=== PATIENT | male | born 1985 | race Two or more races ===

== ENCOUNTER 2021-06-11 09:56 | Outpatient (CLI) | payer OTHER | END 2021-06-11 10:06 | disposition home or self-care (01) | LOC: LAB 09:56 | DX: I11.9 Hypertensive heart disease without heart failure (principal); E78.3 Hyperchylomicronemia; E53.9 Vitamin B deficiency, unspecified; Z13.1 Encounter for screening for diabetes mellitus ==

== ENCOUNTER 2021-08-05 07:33 | Outpatient (CLI) | payer OTHER | END 2021-08-05 07:42 | disposition home or self-care (01) | LOC: LAB 07:33 | DX: A56.01 Chlamydial cystitis and urethritis (principal); Z20.6 Contact with and (suspected) exposure to human immunodeficiency virus [HIV]; Z41.8 Encounter for other procedures for purposes other than remedying health state; A54.01 Gonococcal cystitis and urethritis, unspecified; A51.0 Primary genital syphilis; K75.89 Other specified inflammatory liver diseases; E78.1 Pure hyperglyceridemia ==

== ENCOUNTER 2021-10-01 10:54 | Outpatient (CLI) | payer OTHER | END 2021-10-01 10:56 | disposition home or self-care (01) | LOC: LAB 10:54 | PROVIDERS: ATTEND Family Medicine | DX: Z20.2 Contact with and (suspected) exposure to infections with a predominantly sexual mode of transmission (principal) ==

== ENCOUNTER 2021-12-17 11:03 | Outpatient (CLI) | payer OTHER | END 2021-12-17 11:13 | disposition home or self-care (01) | LOC: LAB 11:03 | DX: R10.13 Epigastric pain (principal); K90.0 Celiac disease; B96.81 Helicobacter pylori [H. pylori] as the cause of diseases classified elsewhere ==

== ENCOUNTER 2021-12-17 11:32 | Outpatient (CLI) | payer OTHER | END 2021-12-17 11:37 | disposition home or self-care (01) | LOC: SONOGRAMA 11:32 | DX: R10.13 Epigastric pain (principal) ==

== ENCOUNTER 2022-04-11 14:23 | Outpatient (CLI) | payer OTHER | END 2022-04-11 14:29 | disposition home or self-care (01) | LOC: RAD 14:23 | PROVIDERS: ATTEND Chiropractor | DX: V49.9XXA Car occupant (driver) (passenger) injured in unspecified traffic accident, initial encounter (principal); Y93.89 Activity, other specified; Y92.9 Unspecified place or not applicable; Y99.9 Unspecified external cause status ==

== ENCOUNTER 2022-07-15 09:12 | Outpatient (CLI) | payer OTHER | END 2022-07-15 14:49 | disposition home or self-care (01) | LOC: LAB 09:12 | DX: Z20.2 Contact with and (suspected) exposure to infections with a predominantly sexual mode of transmission (principal); Z20.6 Contact with and (suspected) exposure to human immunodeficiency virus [HIV]; J32.9 Chronic sinusitis, unspecified; A51.5 Early syphilis, latent ==